=== PATIENT | female | born 1985 ===

== ENCOUNTER 2018-10-29 13:05 | Emergency (ER) | payer MEDICAID ==
[2018-10-29 13:43] VITALS: BP 128/87
--- NOTE | 2018-10-29 13:46 | Emergency Department Report ---
Chief Complaint: Medical Clearance Stated Complaint: TOOK WRONG MEDICINE Time Seen by Provider: 10/29/18 13:43 - HPI History of Present Illness: pt states she had a BARNARD and wanted to take something for a headache took two and a half pills in the medicine cabinet has no idea what she took states it was in a prescription bottle pt states she just feels drowsy denies any other sx denies taking the medication to harm herself no PMHx vitals are normal - Exam Vital Signs: Vital Signs 10/29/18 13:37 Temperature 98.1 F Pulse Rate 91 H Respiratory 18 Rate Blood Pressure 128/87 O2 Sat by Pulse 99 Oximetry MSE screening note: Focused history and physical exam performed. Due to findings the following was ordered: psych protocol ED Disposition for MSE Referrals: MOHAMUD ESPINOZA MD [Primary Care Provider] - 3-5 Days
[2018-10-29 14:43] LABS: Basophils % (Auto) 0.4 % (0.0-1.8); Eosinophils % (Auto) 0.4 % (0.0-4.3); Hematocrit 36.8 % (30.3-42.9); Hemoglobin 11.9 gm/dl (10.1-14.3); Lymphocytes # (Auto) 2.9 K/mm3 (1.2-5.4); Lymphocytes % (Auto) 34.7 % (13.4-35.0); Mean Corpuscular HGB Conc 32 % (30-34); Mean Corpuscular Volume 80 fl (79-97); Monocytes # (Auto) 0.7 K/mm3 (0.0-0.8); Monocytes % (Auto) 8.4 % (0.0-7.3); Platelet Count 376 K/mm3 (140-440); Red Blood Count 4.58 M/mm3 (3.65-5.03); Red Cell Distribution Width 15.4 % (13.2-15.2)
[2018-10-29 15:04] LABS: Bacteria,Urine 1+ /HPF (Negative); Bilirubin,Urine NEG (Negative); Blood,Urine SM (Negative); Color,Urine Yellow (Yellow); Mucus,Urine 1+ /HPF; Protein,Urine <15 mg/dL mg/dL (Negative); Urobilinogen,Urine < 2.0 mg/dL (<2.0)
[2018-10-29 15:07] LABS: Amphetamine Screen,Urine PRESUMPTIVE NEGATIVE; Benzodiazepines Screen,Urine PRESUMPTIVE NEGATIVE; Cannabinoid Screen,Urine PRESUMPTIVE NEGATIVE; Cocaine Screen,Urine PRESUMPTIVE NEGATIVE; Methadone Screen,Urine PRESUMPTIVE NEGATIVE; Opiate Screen,Urine PRESUMPTIVE NEGATIVE
[2018-10-29 15:09] LABS: Alanine Aminotransferase 14 units/L (7-56); Albumin 4.3 g/dL (3.9-5); BUN/Creatinine Ratio 13; Blood Urea Nitrogen 10 mg/dL (7-17); Calcium 9.3 mg/dL (8.4-10.2); Hemolysis Index 4
== END 2018-10-29 18:13 | disposition left against medical advice (07) ==
LOC: ED 13:05
DX: R51 Headache (principal)
CPT/HCPCS: 36415; 80053; 80307; 81001; 84703; 85025; 93005; 93010; 99283; G0480; 80320